=== PATIENT | female | born 1975 | race Two or more races ===

== ENCOUNTER 2016-12-21 08:00 | Emergency (ER) | payer SELFPAY ==
[~2016-12-21] VITALS: Ht 165.1 cm; Wt 99.8 kg
[2016-12-21 08:15] VITALS: BP 112/76
[2016-12-21] MEDS ORDERED: PHENAZOPYRIDINE HCL 100 MG TAB PO ONE (09:15)
== END 2016-12-21 09:25 | disposition home or self-care (01) ==
LOC: ER 08:00
DX: N39.0 Urinary tract infection, site not specified (principal)
CPT/HCPCS: 81002